=== PATIENT | female | born 1995 | race American Indian/Alaskan Native ===

== ENCOUNTER 2020-07-19 00:54 | Emergency (ER) | payer SELFPAY ==
[2020-07-19 01:21] VITALS: BP 154/65
--- NOTE | 2020-07-19 02:15 | Emergency Department Report ---
ED General Adult HPI - General Chief complaint: Rectal Pain Stated complaint: BUTTOX PAIN Time Seen by Provider: 07/19/20 01:47 Source: patient Mode of arrival: Ambulatory Limitations: No Limitations - Related Data Previous Rx's Medication Instructions Recorded Last Taken Type Hydrocortisone [Anucort-HC SUPPOS] 25 mg RC BID #20 supp.rect 07/19/20 Unknown Rx Lidocaine/Hydrocortisone AC 0.2 gm RC Q3HR #7 cream.appl 07/19/20 Unknown Rx [Lidocaine HC 3-0.5% CREAM] ED Review of Systems ROS: Stated complaint: BUTTOX PAIN Other details as noted in HPI Comment: All other systems reviewed and negative ED Past Medical Hx - Past Medical History Previous Medical History?: Yes Additional medical history: Morbid Obesity. Hemorrhoids - Surgical History Past Surgical History?: No - Social History Smoking Status: Never Smoker Substance Use Type: Marijuana - Medications Home Medications: Home Medications Medication Instructions Recorded Confirmed Last Taken Type Hydrocortisone [Anucort-HC SUPPOS] 25 mg RC BID #20 supp.rect 07/19/20 Unknown Rx Lidocaine/Hydrocortisone AC 0.2 gm RC Q3HR #7 cream.appl 07/19/20 Unknown Rx [Lidocaine HC 3-0.5% CREAM] ED Physical Exam - General Limitations: No Limitations General appearance: alert, in no apparent distress - Head Head exam: Present: atraumatic, normocephalic - Eye Eye exam: Present: normal appearance, PERRL, EOMI Pupils: Present: normal accommodation - ENT ENT exam: Present: normal exam, normal orophraynx, mucous membranes moist, TM's normal bilaterally - Neck Neck exam: Present: normal inspection, full ROM - Respiratory Respiratory exam: Present: normal lung sounds bilaterally. Absent: respiratory distress, wheezes, rales, rhonchi, accessory muscle use, decreased breath sounds - Cardiovascular Cardiovascular Exam: Present: regular rate, normal rhythm. Absent: systolic murmur, diastolic murmur, rubs, gallop - GI/Abdominal GI/Abdominal exam: Present: soft, normal bowel sounds - Rectal Rectal exam: Present: hemorrhoids (no thrombosing at current), tenderness. Absent: bloody stool - Extremities Exam Extremities exam: Present: normal inspection - Back Exam Back exam: Present: normal inspection. Absent: CVA tenderness (R), CVA tenderness (L) - Neurological Exam Neurological exam: Present: alert, oriented X3, CN II-XII intact, normal gait - Psychiatric Psychiatric exam: Present: normal affect, normal mood. Absent: flat affect, manic - Skin Skin exam: Present: warm, dry, intact, normal color. Absent: rash, diaphoretic, erythema, petechiae, abrasion, ecchymosis ED Course Vital Signs 07/19/20 01:03 Temperature 98.1 F Pulse Rate 91 H Respiratory 20 Rate Blood Pressure 154/65 O2 Sat by Pulse 98 Oximetry Critical care attestation.: If time is entered above; I have spent that time in minutes in the direct care of this critically ill patient, excluding procedure time. ED Disposition Clinical Impression: Hemorrhoid Disposition: - TO HOME OR SELFCARE Is pt being admited?: No Does the pt Need Aspirin: No Condition: Stable Instructions: Surgical Procedures for Hemorrhoids, Care After, Nonsurgical Procedures for Hemorrhoids, Care After, Hemorrhoids, Hemorrhoids, [id number] Prescriptions: Hydrocortisone [Anucort-HC SUPPOS] 25 mg RC BID #20 supp.rect Lidocaine/Hydrocortisone AC [Lidocaine HC 3-0.5% CREAM] 0.2 gm RC Q3HR #7 cream.appl Referrals: PRIMARY CARE, [Primary Care Provider] - 3-5 Days [facility] [Provider Group] - 3-5 Days
[2020-07-19] MEDS ORDERED: IBUPROFEN 600 MG TAB PO ONE (02:32)
== END 2020-07-19 02:47 | disposition home or self-care (01) ==
LOC: ED 00:54
DX: K64.9 Unspecified hemorrhoids (principal); E66.9 Obesity, unspecified; F12.90 Cannabis use, unspecified, uncomplicated; Z68.43 Body mass index [BMI] 50.0-59.9, adult; Z79.899 Other long term (current) drug therapy
CPT/HCPCS: 99282